=== PATIENT | female | born 1950 | race African-American/Black ===

== ENCOUNTER 2016-07-19 11:22 | Emergency (ER) | payer BC ==
[~2016-07-19] VITALS: Ht 160 cm; Wt 86.2 kg
--- NOTE | 2016-07-19 12:06 | NUR ---
PT PRESENTS SELF FOR R ankle and foot pain. VSS. SEEN BY MD. SAFETY AND COMFORT MEASURES PROVIDED. WILL MONITOR.
[2016-07-19] MEDS ORDERED: HYDROCODONE/APAP 5/325MG 1 EACH TABLET ONE (12:55)
[2016-07-19] MEDS ORDERED: INDOMETHACIN 25 MG CAPSULE ONE (12:55)
[2016-07-19] MEDS ORDERED: HYDROCODONE/APAP 5/325MG 1 EACH TABLET PO ONE (13:00)
[2016-07-19] MEDS ORDERED: INDOMETHACIN 25 MG CAPSULE PO ONE (13:00)
--- NOTE | 2016-07-19 13:05 | NUR ---
MEDICATED PER ORDER
--- NOTE | 2016-07-19 13:43 | NUR ---
Patient discharged to home in stable condition. Written and verbal after care instructions given. Patient verbalizes understanding of instruction. AMBULATED WITH STEADY GAIT. VERBALIZED INTENT TO FOLOOW UP WITH PCP TODAY.
[2016-07-19 13:44] VITALS: BP 149/63
== END 2016-07-19 13:45 | disposition home or self-care (01) ==
LOC: ER 11:27
DX: M25.571 Pain in right ankle and joints of right foot (principal); M10.9 Gout, unspecified; I10 Essential (primary) hypertension; Z88.0 Allergy status to penicillin
CPT/HCPCS: 73610-TC; A4606; Z7610

== ENCOUNTER 2016-08-26 15:24 | Emergency (ER) | payer BC ==
[~2016-08-26] VITALS: Ht 165.1 cm; Wt 90.7 kg
--- NOTE | 2016-08-26 15:24 | NUR ---
BIB SELF, CC: BACK PAIN LEFT SIDED RADIATING TO ABDOMINAL AREA SINCE YESTERDAY. NAD NOTED. PT AAO X4, AMBULATORY WITH STEADY GAIT. RR EVEN AND UNLABORED.VSS. PT PLACED IN GOWN AND MONITOR. MARSII AUTHORIZATION MANAGER AT BEDSIDE.
--- NOTE | 2016-08-26 15:24 | NUR ---
IV PLACED R AC 18G PATENT AND FLUSHING WELL. BLOOD DRAWN SENT TO LAB.
--- NOTE | 2016-08-26 15:36 | NUR ---
PT AMBULATORY TO ER BED 03. C/O L FLANK PAIN THAT STARTED LAST NIGHT. DENIES TRAUMA. NO DYSURIA. PT HAS HX OF AORTIC ANEURYSM AND IS SCHEDULE FOR SURGERY NEXT WEEK. DENIES CHEST PAIN OR SOB. 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 AWAITING MD BUITRAGO.
--- NOTE | 2016-08-26 15:45 | NUR ---
NEIL ROLLER MAN AT BEDSIDE FOR EVAL.
[2016-08-26 15:55] LABS: BASOPHILS % (AUTO) 0.4 % (0.0-2.0); EOSINOPHILS # (AUTO) 0.2 /CMM (0.0-0.7); EOSINOPHILS % (AUTO) 3.4 % (0.0-6.0); HEMATOCRIT 40 % (33-45); HEMOGLOBIN 12.5 g/dL (11.5-14.8); LYMPHOCYTES # (AUTO) 1.4 /CMM (0.8-4.8); LYMPHOCYTES % (AUTO) 26.7 % (20.0-44.0); MEAN CORPUSCULAR HEMOGLOBIN 28 PG (26.0-33.0); MEAN CORPUSCULAR HGB CONC 32 g/dl (31.0-36.0); MEAN CORPUSCULAR VOLUME 90 fL (82-100); MONOCYTES # (AUTO) 0.7 /CMM (0.1-1.30); MONOCYTES % (AUTO) 12.3 % (2.0-12.0); NEUTROPHILS # (AUTO) 3.1 /CMM (1.8-8.9); NEUTROPHILS % (AUTO) 57.2 % (43.0-81.0); PLATELET COUNT (AUTO) 233 /CMM (150-450); RDW COEFFICIENT OF VARIATION 13.8 (11.5-15.0); WHITE BLOOD COUNT (AUTO) 5.4 K/uL (4.3-11.0)
[2016-08-26 16:04] LABS: CALCIUM, SERUM 9.3 mg/dL (8.5-10.1); CARBON DIOXIDE 26 mmol/L (21-32); CHLORIDE 101 mmol/L (98-107); CREATININE 1.2 mg/dL (0.6-1.3); GLUCOSE 109 mg/dL (74-106); POTASSIUM 4.1 mmol/L (3.5-5.1); SODIUM SERUM 136 mmol/L (136-145); UREA NITROGEN, BLOOD 19 mg/dL (7-18)
[2016-08-26 16:07] LABS: INR 0.9 (0.87-1.13); PROTHROMBIN TIME 9.3 SECS (9.5-12.7)
[2016-08-26 16:12] LABS: TROPONIN I < 0.017 ng/mL (0.00-0.056)
[2016-08-26] MEDS ORDERED: CT SWABBABLE VALVE TRANS SET 1 EA INFUS.SET MC ONE (16:15)
[2016-08-26] MEDS ORDERED: IOHEXOL-350 100 ML VIAL IV ONE (16:15)
[2016-08-26] MEDS ORDERED: IV NS 0.9% 250 ML IV ONE (16:15)
--- NOTE | 2016-08-26 16:28 | NUR ---
PT SENT TO CT VIA [employer] .
--- NOTE | 2016-08-26 17:03 | NUR ---
PT HELPED AMB TO BR VOIDED UA SENT TO LAB BCK TO BED AWAITING EVALUATION BY ER PROVIDER.
--- NOTE | 2016-08-26 18:27 | NUR ---
PT. VERBALIZED UNDERSTANDING OF AFTERCARE INSTRUCTIONS.Patient discharged to home in stable condition. Written and verbal after care instructions given. Patient verbalizes understanding of instruction.IV removed. Catheter intact and site benign. Pressure and 4x4 applied to site. No bleeding noted.
[2016-08-26 18:28] VITALS: BP 147/60
== END 2016-08-26 18:31 | disposition home or self-care (01) ==
LOC: ER 15:25
DX: M54.9 Dorsalgia, unspecified (principal); I10 Essential (primary) hypertension; Z88.0 Allergy status to penicillin
CPT/HCPCS: 36415; 71010-TC; 74175-TC; 80048-TC; 84484-TC; 85025-TC; 85730-TC; A4606; J7050; Q9967; Z7610